=== PATIENT | male | born 1970 | race Caucasian/White ===

== ENCOUNTER 2023-05-09 19:03 | Emergency (ER) | payer SELFPAY ==
[~2023-05-09] VITALS: Ht 180.3 cm; Wt 81.6 kg
[2023-05-09 19:09] VITALS: BP 169/105; PULSE 88; RESP 17; TEMP 97.6; O2SAT 99
[2023-05-09] MEDS: IBUPROFEN 600 MG TAB PO ONE (20:34)
[2023-05-09] MEDS ORDERED: LID5T TP (21:57)
[2023-05-09] MEDS ORDERED: CYCL-711 PO (21:57)
[2023-05-09] MEDS ORDERED: DICL20GE TP (21:57)
[2023-05-09] MEDS ORDERED: NAPR-54 PO (21:57)
[2023-05-09] MEDS: BACITRACIN OINT 500 UNITS/GM PKT TP ONE (22:38)
== END 2023-05-09 22:40 | disposition home or self-care (01) ==
LOC: MED 19:03
DX: M54.2 Cervicalgia (principal); M79.662 Pain in left lower leg; V49.88XA Car occupant (driver) (passenger) injured in other specified transport accidents, initial encounter; Y93.89 Activity, other specified; Y92.89 Other specified places as the place of occurrence of the external cause; Y99.8 Other external cause status
CPT/HCPCS: 72050; 99284